=== PATIENT | male | born 1995 | race African-American/Black ===

== ENCOUNTER 2023-11-10 00:47 | Emergency (ER) | payer OTHER, SELFPAY ==
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
[2023-11-10 00:48] VITALS: BP 149/83; PULSE 80; RESP 18; TEMP 36.1; O2SAT 100
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
[2023-11-10] MEDS: ACETAMINOPHEN 500 MG TABLET 1000 MG PO (01:17)
== END 2023-11-10 02:36 | disposition home or self-care (01) ==
PROVIDERS: Emergency Provider Physician Assistant
DX: S16.1XXA Strain of muscle, fascia and tendon at neck level, initial encounter (principal); V48.5XXA Car driver injured in noncollision transport accident in traffic accident, initial encounter
CPT/HCPCS: 70450; 72125; 72128; 72131; 73030; 73521; 99284; A9270